=== PATIENT | female | born 1950 | race Caucasian/White ===

== ENCOUNTER 2017-12-17 11:13 | Observation (INO) | payer MEDICARE, MEDICAID ==
[2017-12-14 15:03] LABS: BASOPHILS % (AUTO) 0.3 % (0-1); EOSINOPHILS # (AUTO) 0.5 X10'3 (0-0.9); EOSINOPHILS % (AUTO) 6.2 % (0-6); LYMPHOCYTES # (AUTO) 1.9 X10'3 (1.1-4.8); LYMPHOCYTES % (AUTO) 23.3 % (21-51); MEAN CORPUSCULAR HEMOGLOBIN 29.5 PG (27.0-31.0); MEAN CORPUSCULAR HGB CONC 33.2 % (33.0-36.5); MEAN CORPUSCULAR VOLUME 89.1 FL (78-98); MONOCYTES # (AUTO) 0.8 X10'3 (0-0.9); MONOCYTES % (AUTO) 10.1 % (2-12); NEUTROPHILS # (AUTO) 4.9 X10'3 (1.8-7.7); NEUTROPHILS % (AUTO) 60.1 % (42-75); PRE OP HEMATOCRIT 36.8 % (35.0-45.0); PRE OP HEMOGLOBIN 12.2 g/dL (12.0-16.0); PRE OP PLATELET COUNT 309 X10'3 (140-440); RED BLOOD COUNT 4.13 X10'6 (4.20-5.60); RED CELL DISTRIBUTION WIDTH 14.9 % (11.5-14.5)
[2017-12-14 15:31] LABS: ALBUMIN 3.3 G/DL (3.4-5.0); ALBUMIN/GLOBULIN RATIO 0.8 (1.1-1.5); ALKALINE PHOSPHATASE 73 IU/L (46-116); BLOOD UREA NITROGEN 18 MG/DL (7-18); BUN/CREATININE RATIO 19.4 (6.6-38.0); CALCIUM 9.2 MG/DL (8.5-10.1); CHLORIDE 100 MMOL/L (99-107); CREATININE 0.93 MG/DL (0.40-0.90); PRE OP ALT 27 U/L (30-65); PRE OP ANION GAP 5 (8-16); PRE OP AST 17 U/L (10-37); PRE OP GLUCOSE 102 MG/DL (70-104); PRE OP POTASSIUM 3.5 MMOL/L (3.4-5.1); PRE OP SODIUM 136 MMOL/L (135-145); TOTAL CARBON DIOXIDE 31.4 MMOL/L (24-32); TOTAL PROTEIN 7.6 G/DL (6.4-8.2); eGFR 60 ML/MIN
[~2017-12-17] VITALS: Ht 167.6 cm; Wt 86.4 kg
[2017-12-17] VITALS (24 sets, daily range): BP systolic 91–144; BP diastolic 42–84
[~2017-12-17 11:13] MED LIST: FLUO20CA39 PO; LEVO75TA PO; LOSA25TA96 PO; VANCOMYCIN INJ 1000 MG in NORMAL SALINE 250ml IV.SOLN IV ONE; ceFAZolin 1,000 MG/D5W 50ML IVPB Premixed bag IV ONE; famotidine 20mg tablet PO ONE; ringers solution, lacted 1,000 ML IV SCH
[2017-12-17] MEDS ORDERED: diazepam 5mg tablet PO ONE (11:45)
[2017-12-17] MEDS ORDERED: BUPIVAcaine/PF 2.5mg/ml (0.25%) 10ml vial ONE (11:49)
[2017-12-17] MEDS ORDERED: cloNIDine hcl/PF 100mcg/ml inj ONE (12:41)
[2017-12-17] MEDS ORDERED: BUPIVAcaine/PF 7.5mg/ml (0.75%) 10ml vial ONE (12:42)
[2017-12-17] MEDS ORDERED: fentaNYL/PF 50MCG/1 ML 2ML syringe ONE (12:44)
[2017-12-17] MEDS ORDERED: MIDAZolam 5mg/5ml vial ONE (12:46)
[2017-12-17] MEDS ORDERED: ringers solution, lacted 1,000 ML IV SCH (13:34)
[2017-12-17] MEDS ORDERED: morphine 4 MG/ML inj SYRINge IV PRN ×2 (13:35)
[2017-12-17] MEDS ORDERED: ondansetron/PF 4mg/2ml inj IV PRN (13:35)
[2017-12-17] MEDS ORDERED: meperidine/PF 25mg/ml syringe IV PRN ×3 (13:35)
[2017-12-17] MEDS ORDERED: proCHLORperazine 10 MG/2 ml inj IV PRN (13:35)
[2017-12-17] MEDS ORDERED: ePHEDrine 50MG/ML INJ. ONE (13:55)
[2017-12-17] MEDS ORDERED: ROPIVAcaine 0.5% (5mg/ml) 30ml vial ONE (13:56)
== END 2017-12-17 19:14 | disposition home or self-care (01) ==
LOC: PAS 11:13 → ORTHO 4S 18:44
PROVIDERS: ADMIT Internal Medicine Infectious Disease; ATTEND Orthopaedic Surgery
DX: S82.52XA Displaced fracture of medial malleolus of left tibia, initial encounter for closed fracture (principal); S82.432A Displaced oblique fracture of shaft of left fibula, initial encounter for closed fracture; F32.9 Major depressive disorder, single episode, unspecified; E03.9 Hypothyroidism, unspecified; I10 Essential (primary) hypertension; J44.9 Chronic obstructive pulmonary disease, unspecified; R00.2 Palpitations; Z87.891 Personal history of nicotine dependence; Z79.82 Long term (current) use of aspirin; Z86.73 Personal history of transient ischemic attack (TIA), and cerebral infarction without residual deficits; Z85.828 Personal history of other malignant neoplasm of skin; X58.XXXA Exposure to other specified factors, initial encounter; Y93.89 Activity, other specified; Y92.89 Other specified places as the place of occurrence of the external cause; Y99.8 Other external cause status
CPT/HCPCS: 27814; 36415; 73600; 76001; 80053; 84443; 85025; 96365; A6222; A6449; G0378; J0690; J0735; J2250; J2795; J3010; J3370; J3490; J7120; A7000

== ENCOUNTER 2018-09-16 15:05 | Emergency (ER) | payer MEDICARE, MEDICAID ==
[~2018-09-16] VITALS: Ht 167.6 cm; Wt 94.0 kg
[~2018-09-16 15:05] MED LIST changes: -VANCOMYCIN INJ 1000 MG in NORMAL SALINE 250ml IV.SOLN IV ONE; -ceFAZolin 1,000 MG/D5W 50ML IVPB Premixed bag IV ONE; -famotidine 20mg tablet PO ONE; -ringers solution, lacted 1,000 ML IV SCH
[2018-09-16 15:28] VITALS: BP 130/84
[2018-09-16 16:37] LABS: CLARITY,URINE SLIGHTLY CLOUDY (Clear); COLOR,URINE YELLOW (Yellow); GLUCOSE, URINE NEGATIVE (Neg); KETONES,URINE NEGATIVE (Neg); LEUKOCYTE ESTERASE ,URINE MODERATE (Neg); NITRITES, URINE NEGATIVE (Neg); OCCULT BLOOD,URINE TRACE-INTACT (Neg); PROTEIN,URINE NEGATIVE (Neg); UROBILINOGEN,URINE 0.2 E.U/dL (0.2-1.0)
[2018-09-16 16:41] LABS: UA COLLECTION TYPE NON-SPECIFIED
[2018-09-16 16:44] LABS: BACTERIA,URINE 4+ /HPF (Neg); MUCUS STRANDS FEW /LPF (Neg); RBC,URINE 0-2 /HPF (0-2); SQUAMOUS EPITHELIAL CELL,UR MANY /LPF (FEW)
[2018-09-16] MEDS ORDERED: CEPH-572 PO (17:01)
[2018-09-16] MEDS ORDERED: NAPR-56 PO (17:01)
--- NOTE | 2018-09-16 17:26 | NUR ---
LEFT ANKLE TADEO WRAPPED
== END 2018-09-16 17:26 | disposition home or self-care (01) ==
LOC: ER 15:05
DX: S93.402A Sprain of unspecified ligament of left ankle, initial encounter (principal); N39.0 Urinary tract infection, site not specified; I10 Essential (primary) hypertension; M19.90 Unspecified osteoarthritis, unspecified site; Z88.6 Allergy status to analgesic agent; Z88.5 Allergy status to narcotic agent; Z79.899 Other long term (current) drug therapy; Z98.890 Other specified postprocedural states; X58.XXXA Exposure to other specified factors, initial encounter; Y93.89 Activity, other specified; Y92.89 Other specified places as the place of occurrence of the external cause; Y99.8 Other external cause status
CPT/HCPCS: 73600; 81001; 99284

== ENCOUNTER 2019-01-19 11:25 | Emergency (ER) | payer MEDICARE, MEDICAID ==
[~2019-01-19] VITALS: Ht 167.6 cm; Wt 83.0 kg
[2019-01-19 13:34] LABS: BASOPHILS # (AUTO) 0.1 X10'3 (0-0.2); BASOPHILS % (AUTO) 0.5 % (0-1); EOSINOPHILS # (AUTO) 0.1 X10'3 (0-0.9); EOSINOPHILS % (AUTO) 1.2 % (0-6); LYMPHOCYTES # (AUTO) 1.1 X10'3 (1.1-4.8); LYMPHOCYTES % (AUTO) 9.2 % (21-51); MEAN CORPUSCULAR HEMOGLOBIN 30.3 PG (27.0-31.0); MEAN CORPUSCULAR HGB CONC 33.3 g/dL (33.0-36.5); MEAN PLATELET VOLUME 9.5 FL (7.4-10.4); MONOCYTES # (AUTO) 0.8 X10'3 (0-0.9); MONOCYTES % (AUTO) 6.9 % (2-12); NEUTROPHILS # (AUTO) 9.9 X10'3 (1.8-7.7); NEUTROPHILS % (AUTO) 82.2 % (42-75); PLATELET COUNT 198 X10'3 (140-440); RED BLOOD COUNT 4.29 X10'6 (4.20-5.60); RED CELL DISTRIBUTION WIDTH 14.2 % (11.5-14.5)
[2019-01-19] MEDS ORDERED: ketorolac trometh. 30mg/ml inj. IV ONE (13:40)
[2019-01-19] MEDS ORDERED: sulfamethoxazole/trimethoprim DS (800/160mg) tablet PO ONE (13:40)
[2019-01-19] MEDS ORDERED: fluconazole 100mg tablet PO ONE (13:40)
[2019-01-19] MEDS ORDERED: clindamycin phosphate inj 600 MG in normal saline 50ml IV soln 50 ML IV ONE (13:40)
[2019-01-19] MEDS ORDERED: normal saline 1000ml 1,000 ML IV ONE (13:40)
[2019-01-19] MEDS ORDERED: ketorolac tromethamine 15mg/ml inj. IV ONE (13:40)
[2019-01-19] MEDS ORDERED: clindamycin 600mg/D5W 50ml 50 ML IV ONE (13:40)
[2019-01-19] MEDS ORDERED: ondansetron/PF 4mg/2ml inj IV ONE (13:40)
[2019-01-19 13:49] LABS: CLARITY,URINE CLOUDY (Clear); COLOR,URINE YELLOW (Yellow); GLUCOSE, URINE NEGATIVE (Neg); KETONES,URINE NEGATIVE (Neg); LEUKOCYTE ESTERASE ,URINE SMALL (Neg); NITRITES, URINE POSITIVE (Neg); OCCULT BLOOD,URINE SMALL (Neg); PH,URINE 5.5 (4.8-8.0); PROTEIN,URINE NEGATIVE (Neg); UA COLLECTION TYPE CLN CATCH MIDSTREAM; UROBILINOGEN,URINE 0.2 E.U/dL (0.2-1.0)
[2019-01-19 13:52] LABS: ALANINE AMINOTRANSFERASE 44 U/L (12-78); ALBUMIN 3.7 G/DL (3.4-5.0); ALKALINE PHOSPHATASE 66 IU/L (46-116); ANION GAP 5 (8-16); ASPARTATE AMINO TRANSFERASE 14 U/L (10-37); BILIRUBIN,TOTAL 1.4 MG/DL (0.1-1.0); BLOOD UREA NITROGEN 21 MG/DL (7-18); BUN/CREATININE RATIO 21.9 (6.6-38.0); CALCIUM 8.6 MG/DL (8.5-10.1); CHLORIDE 104 MMOL/L (99-107); CREATININE 0.96 MG/DL (0.40-0.90); GLUCOSE 106 MG/DL (70-104); POTASSIUM 4.1 MMOL/L (3.5-5.1); SODIUM 138 MMOL/L (135-145); TOTAL PROTEIN 7.3 G/DL (6.4-8.2); eGFR 57 ML/MIN
[2019-01-19 13:59] LABS: BACTERIA,URINE 3+ /HPF (Neg); MUCUS STRANDS FEW /LPF (Neg); SQUAMOUS EPITHELIAL CELL,UR MODERATE /LPF (FEW)
[2019-01-19] MEDS ORDERED: CefTRIAXone/D5W-Rocephin 1gm 50 ML IV ONE (14:00)
[2019-01-19 14:01] LABS: WBC,URINE 20-30 /HPF (0-4)
[2019-01-19] MEDS ORDERED: SULF1TAB49 PO (14:01)
[2019-01-19 14:02] LABS: WBC CLUMPS,URINE FEW /HPF (NEGATIVE)
[2019-01-19 16:30] VITALS: BP 148/61
== END 2019-01-19 16:36 | disposition home or self-care (01) ==
LOC: ER 11:26
DX: L03.314 Cellulitis of groin (principal); N39.0 Urinary tract infection, site not specified; I10 Essential (primary) hypertension; E07.9 Disorder of thyroid, unspecified; M19.90 Unspecified osteoarthritis, unspecified site; Z88.6 Allergy status to analgesic agent; Z79.899 Other long term (current) drug therapy; Z98.890 Other specified postprocedural states
CPT/HCPCS: 36415; 80053; 81001; 85025; 87077; 87088; 87186; 96365; 96368; 96375; 99283; J0696; J1885; J2405; J7030; J3490

== ENCOUNTER 2023-06-17 21:08 | Emergency (ER) | payer MEDICARE, MEDICAID ==
[~2023-06-17] VITALS: Ht 167.6 cm; Wt 90.0 kg
[~2023-06-17 21:08] MED LIST changes: +LOSA-415 PO; -LOSA25TA96 PO
[2023-06-18] MEDS ORDERED: triamcinolone acetonide 40mg/ml inj IM ONE (03:45)
[2023-06-18] MEDS ORDERED: ketorolac trometh inj. 60 MG/2 ML VIAL IM ONE (03:45)
[2023-06-18] MEDS ORDERED: acetaminophen 325mg tablet PO ONE (03:45)
[2023-06-18] MEDS ORDERED: amLODIPine 5mg tablet PO ONE (04:15)
[2023-06-18 04:45] VITALS: BP 171/88; PULSE 56; RESP 16; TEMP 98.4; O2SAT 98
== END 2023-06-18 04:47 | disposition home or self-care (01) ==
LOC: ER 21:09
DX: S39.012A Strain of muscle, fascia and tendon of lower back, initial encounter (principal); I10 Essential (primary) hypertension; Z79.899 Other long term (current) drug therapy; Z88.6 Allergy status to analgesic agent; W17.89XA Other fall from one level to another, initial encounter; Y93.89 Activity, other specified; Y92.89 Other specified places as the place of occurrence of the external cause; Y99.8 Other external cause status
CPT/HCPCS: 72100; 96372; 99284; J1885; J3301

== ENCOUNTER 2024-07-06 19:10 | Emergency (ER) | payer MEDICAID, MEDICARE ==
[~2024-07-06] VITALS: Ht 167.6 cm; Wt 86.5 kg
[2024-07-06 19:13] VITALS: TEMP 98.5
[2024-07-06 21:08] LABS: BASOPHILS % (AUTO) 0.2 % (0-1); EOSINOPHILS # (AUTO) 0.1 X10'3 (0-0.9); EOSINOPHILS % (AUTO) 1.1 % (0-6); HEMATOCRIT 39.8 % (35.0-45.0); HEMOGLOBIN 13.2 g/dl (12.0-16.0); LYMPHOCYTES # (AUTO) 2.1 X10'3 (1.1-4.8); LYMPHOCYTES % (AUTO) 17.7 % (21-51); MEAN CORPUSCULAR HEMOGLOBIN 30.1 PG (27.0-31.0); MEAN CORPUSCULAR HGB CONC 33.3 g/dL (33.0-36.5); MEAN CORPUSCULAR VOLUME 90.6 FL (78-98); MEAN PLATELET VOLUME 9.2 FL (7.4-10.4); MONOCYTES # (AUTO) 1.1 X10'3 (0-0.9); MONOCYTES % (AUTO) 8.8 % (2-12); NEUTROPHILS # (AUTO) 8.7 X10'3 (1.8-7.7); NEUTROPHILS % (AUTO) 72.2 % (42-75); PLATELET COUNT 262 X10'3 (140-440); RED BLOOD COUNT 4.39 X10'6 (4.20-5.60); RED CELL DISTRIBUTION WIDTH 13.6 % (11.5-14.5); WHITE BLOOD COUNT 12.1 X10'3 (4.5-11.0)
[2024-07-06] MEDS: dexamethasone sod phosphate 10mg/ml inj IV STA (21:08)
[2024-07-06 21:29] LABS: ALBUMIN 3.1 G/DL (3.4-5.0); ANION GAP 7 (8-16); BLOOD UREA NITROGEN 27 MG/DL (7-18); BUN/CREATININE RATIO 33.8 (10.0-20.0); CALCIUM 8.9 MG/DL (8.5-10.1); CHLORIDE 102 MMOL/L (99-107); GLUCOSE 105 MG/DL (70-104); POTASSIUM 3.7 MMOL/L (3.5-5.1); PRO BRAIN NATRIURETIC PEPTIDE 316 PG/ML (0-450); SODIUM 136 MMOL/L (135-145); TOTAL CARBON DIOXIDE 27.2 MMOL/L (24-32); eCRCL 56 ML/MIN; eGFR 70 ML/MIN
[2024-07-06 21:55] LABS: D-DIMER 2.09 MG/L FEU (0-0.50)
[2024-07-06] MEDS: ipratropium/albuterol 3ml nebule NEB STA (21:57)
[2024-07-06 22:00] VITALS: PULSE 92; RESP 20; O2SAT 92
[2024-07-06 22:05] VITALS: PULSE 74; RESP 20; O2SAT 97
[2024-07-06 22:17] LABS: BILIRUBIN,URINE MODERATE (Neg); CLARITY,URINE CLOUDY (Clear); COLOR,URINE YELLOW (Yellow); GLUCOSE, URINE NEGATIVE (Neg); KETONES,URINE 15 mg/dl (Neg); LEUKOCYTE ESTERASE ,URINE TRACE (Neg); NITRITES, URINE NEGATIVE (Neg); OCCULT BLOOD,URINE NEGATIVE (Neg); PH,URINE 5.5 (4.8-8.0); PROTEIN,URINE 100 mg/dl (Neg)
[2024-07-06 22:30] LABS: UA COLLECTION TYPE CLN CATCH MIDSTREAM
[2024-07-06 22:38] LABS: AMORPHOUS URATES 1+; BACTERIA,URINE 2+ /HPF (Neg); RBC,URINE NONE SEEN /HPF (0-2); SQUAMOUS EPITHELIAL CELL,UR MODERATE /LPF (FEW); WBC,URINE 0-4 /HPF (0-4)
[2024-07-06] MEDS ORDERED: METH4TAB81 PO (23:08)
[2024-07-06] MEDS ORDERED: ALBU8HFA PO (23:08)
[2024-07-06 23:25] VITALS: BP 148/73; PULSE 91; RESP 16; O2SAT 98
== END 2024-07-06 23:28 | disposition home or self-care (01) ==
LOC: ER 19:11
DX: J20.9 Acute bronchitis, unspecified (principal); J22 Unspecified acute lower respiratory infection; I10 Essential (primary) hypertension; M19.90 Unspecified osteoarthritis, unspecified site; Z88.5 Allergy status to narcotic agent; Z88.8 Allergy status to other drugs, medicaments and biological substances; Z98.890 Other specified postprocedural states; Z20.822 Contact with and (suspected) exposure to COVID-19
CPT/HCPCS: 36415; 71045; 80048; 81001; 83880; 84484; 85025; 85379; 87502; 87503; 87811; 93005; 94640; 96374; 99285; J1100

== ENCOUNTER 2025-03-31 19:28 | Emergency (ER) | payer MEDICAID, MEDICARE ==
[~2025-03-31] VITALS: Ht 167.6 cm; Wt 91.7 kg
[~2025-03-31 19:28] MED LIST changes: -FLUO20CA39 PO; +FLUO20CA41 PO; +METH4TAB81 PO
[2025-03-31 19:34] VITALS: BP 124/76; PULSE 75; RESP 16; O2SAT 96
--- NOTE | 2025-03-31 20:20 | RADIOLOGY REPORT ---
CLINICAL INDICATION: WRIST PAIN TECHNIQUE: DI WRIST, COMPLETE (3VW MIN) Comparison: ANKLE,LIMITED (AP/LAT) on DOS: 09/16/18 FINDINGS: No evidence of fracture or dislocation. Mild degenerative changes in first CMC, MCP and IP joints. IMPRESSION: No evidence of fracture or dislocation.
--- NOTE | 2025-03-31 20:40 | Physician Documentation ---
History of Present Illness ~ Chief Complaint: Wrist pain Stated Complaint: FALL/WRIST PAIN Time Seen by MD: 19:44 OK to notify your PCP?: Yes Primary Medical Doctor: Lalito Zhou MD Source: patient Mode of Arrival: POV Exam Limitations: no limitations HPI Presents with right wrist pain after tripping and falling and landing on her right wrist. There is some swelling and bruising noted to the right wrist and hand. She has not taken any medications No blood thinner use. No head strike or neck pain. No other injuries from her fall. Tetanus within 5 years: No Medication Reconciliation Allergies: Coded Allergies: acetaminophen (Verified Allergy, Unknown, goes unconscious, 03/31/25) hydrocodone (Verified Allergy, Unknown, goes unconscious, 03/31/25) Uncoded Allergies: BEE STING (Allergy, Severe, 12/03/17) Scheduled Fluoxetine Hcl* (Prozac*), 40 MG PO DAILY, (Reported) Levothyroxine Sodium* (Synthroid*), 1 TAB PO DAILY, (Reported) Losartan Potassium* (Cozaar*), 12.5 MG PO DAILY, (Reported) Methylprednisolone (Medrol Dosepak), 0 PO UD Past Medical History Past Medical History: Hypertension, *RENAL/*, Thyroid (unspecified), Arthritis Past Surgical History: orthopedic surgeries Alcohol Use: None Drug Use: none Lives with: Family Lives In: Home Review of Systems All Other Systems at this time: Reviewed and Negative Physical Exam Vital Signs: RN Vital Signs have been reviewed: Yes, Temperature: 97.7, Source: Temporal, Heart Rate: 75, Respiratory Rate: 16, BP: 124/76, Pulse Oximetry: 96, Weight: 91.700 Pulse Oximetry Reflects: adequate oxygenation Physical Exam General: Alert, no distress. HEENT: No injection, moist mucous membranes. Neck: Full range of motion. Respiratory: No respiratory distress, equal chest rise and fall. Chest: No accessory muscle use. Cardiovascular: Regular rate and rhythm. Gastrointestinal: Nondistended. Extremities: Good range motion of right wrist. Tenderness to palpation of the lateral and medial portion of the wrist. There bruising to her right top of her hand. She is able to make a fist., good CSM, good sensation. Neurologic: Oriented x4. Psychiatric: Normal mood and affect. Skin: Normal color, warm and dry. Progress Results/Orders Reviewed/noted all lab results: Yes Results/Orders Orders - CATHIE KNAPP SUPERVISOR ASSEMBLY Wrist, Complete (3vw Min) (03/31/25 19:44) Ibuprofen Tablet (Motrin Tablet) (03/31/25 20:40) Ortho Orders (03/31/25 ) Completed Orders - CATHIE KNAPP SUPERVISOR [employer]SEMBL[employer] Wrist, Complete (3vw Min) (03/31/25 19:44) Vital Signs 03/31/25 19:34 Temp 97.7 Pulse 75 Resp 16 B/P (MAP) 124/76 Pulse Ox 96 EKG/XRAY/CT/US/VASC/MRI Bone/Soft Tissue X-Ray (Ext.) : Additional Comment Right wrist x-ray as interpreted by me; no joint effusion, no acute fracture, no soft tissue swelling, no dislocation, or foreign body. Medical Decision Making Additional information obtaine: family Findings She is presenting with right wrist pain after falling yesterday. There was no obvious deformity. She has not taken any medication for the pain. X ray reveals that there is no acute fracture. We did discuss the patient's of an X ray. She was given discharge instructions as well as follow up instructions. We placed a Velcro wrist splint to help provide a little extra support when healing. Gave ibuprofen while in the department for pain. General Diff Dx:Considerations: Include: Fracture Shoulder Diff Dx:Consideration: Include: Other Elbow Diff Dx:Considerations: Include: Other Wrist Diff Dx:Considerations: Include: Dislocation, Fracture-carpal, Fracture- radius, Fracture-ulna, Neurovascular injury, Open fracture, Strain Hand Diff Dx:Considerations: Include: Hematoma Finger Diff Dx:Considerations: Include: Neurovascular injury Departure Disposition: 01 HOME / SELF CARE / HOMELESS Impression: Primary Impression: Wrist joint pain Condition: Stable Discharge Instructions: Wrist Pain, Adult Additional Instructions: Please use the Velcro wrist splint as extra support while your hand is healing. Keep arm elevated, ice 20 minutes on 20 minutes off and rest your arm. Follow up with the primary care provider within the next week. We discussed the limitations of an x-ray and if you continue having symptoms in 10-14 days you may benefit from a repeat x-ray to find an occult fracture. If needed you can obtain a orthopedic referral from your primary care provider. Referrals: NO PRIMARY CARE PROVIDER (PCP) Education Educated: Patient Educated regarding: diagnosis, treatment, prognosis, need for follow up Additional Comment Medical Screen Exam This patient recieved a medical screening examination. After reviewing the individual's medical complaints with presenting symptoms and performing an ap propriate physical examination, it was determined that no immediate life- threatening emergency medical condition is present. This individual is also not a women having contractions. Signature Scribe Signature: . Attestation: Scribed for Cathie Knapp Pyrotechnist by aCthie Landeros NP . 03/31/25 20:39 Parts of this note were created using [employer] voice recognition software program. While efforts were made to correct any mistakes made by this voice recognition software program, nonsensical phrases may remain in this note. In addition, there may be errors and syntax, grammar, content and spelling. CATHIE KNAPP SUPERVISOR ASSEMBLY Mar 31, 2025 20:40
[2025-03-31] MEDS: ibuprofen tablet 400 MG TABLET PO ONE (20:47)
[2025-03-31 20:48] VITALS: TEMP 97.7
== END 2025-03-31 20:49 | disposition home or self-care (01) ==
LOC: ER 19:29
DX: S60.211A Contusion of right wrist, initial encounter (principal); M19.90 Unspecified osteoarthritis, unspecified site; I10 Essential (primary) hypertension; Z88.5 Allergy status to narcotic agent; Z98.890 Other specified postprocedural states; W01.0XXA Fall on same level from slipping, tripping and stumbling without subsequent striking against object, initial encounter; Y93.89 Activity, other specified; Y92.89 Other specified places as the place of occurrence of the external cause; Y99.8 Other external cause status
CPT/HCPCS: 29125; 73110; 99283; L3908